=== PATIENT | male | born 1930 | race Caucasian/White ===

== ENCOUNTER 2021-07-15 11:57 | Emergency (ER) | payer MEDICARE, BC ==
[2021-07-15 12:09] LABS: Glucose,Whole Blood 185 mg/dL (75-99)
[2021-07-15 12:33] LABS: Basophils # (A) 0.1 k/uL (0-0.2); Basophils % (A) 1 %; Eosinophils # (A) 0.1 k/uL (0-0.7); Eosinophils % (A) 1 %; HCT 42.3 % (39.0-53.0); Lymphocytes # (A) 1.6 k/uL (1.0-4.8); Lymphocytes % (A) 22 %; MCH 34.6 pg (25.0-35.0); MCHC 33.2 g/dL (31.0-37.0); MCV 104.1 fL (80.0-100.0); Macrocytosis Slight; Mean Platelet Volume 9.1; Monocytes # (A) 0.7 k/uL (0-1.0); Monocytes % (A) 9 %; Neutrophils # (A) 4.9 k/uL (1.3-7.7); Neutrophils % (A) 65 %; Platelet Count 227 k/uL (150-450); RBC 4.06 m/uL (4.30-5.90); RDW 12.3 % (11.5-15.5); WBC 7.5 k/uL (3.8-10.6)
--- NOTE | 2021-07-15 12:54 | ED ---
General Adult HPI - General Stated complaint: SOB Time Seen by Provider: 07/15/21 12:05 Source: patient, RN notes reviewed, old records reviewed Mode of arrival: EMS Limitations: no limitations - History of Present Illness Initial comments: This is an 89-year-old male who presents emergency department stating that he was at [facility] and he had bought the wrong products I went back into exchange however when he got inside there was a line 8 people deep and he got very agitated. Patient states he believes he had an anxiety attack and felt like he couldn't breathe walked outside had to sit down for about 10 minutes and then all symptoms pass. No time did the patient any chest pain or palpitations. Patient denies any lightheadedness or dizziness. Patient states this happened to him approximately 4 times in the past. Patient states his been a couple years since this happened but it felt the same on those previous 4 times. Patient denies any recent fever chills or cough per patient denies any abdominal pain patient denies nausea vomiting diarrhea. - Related Data Home Medications Medication Instructions Recorded Confirmed Aspirin EC [Ecotrin Low Dose] 81 mg PO DAILY 07/15/21 07/15/21 Hydrochlorothiazide 12.5 mg PO DAILY 07/15/21 07/15/21 [hydroCHLOROthiazide] Multivitamins, Thera [Multivitamin 1 tab PO DAILY 07/15/21 07/15/21 (formulary)] Pioglitazone [Actos] 45 mg PO DAILY 07/15/21 07/15/21 Pravastatin Sodium 80 mg PO DAILY 07/15/21 07/15/21 Vit C/E/Zn/Coppr/Lutein/Zeaxan 1 cap PO BID 07/15/21 07/15/21 [Preservision Areds 2 Softgel] glipiZIDE XL [Glucotrol Xl] 5 mg PO DAILY 07/15/21 07/15/21 lisinopriL [Zestril] 20 mg PO DAILY 07/15/21 07/15/21 metFORMIN HCL 500 mg PO BID 07/15/21 07/15/21 Allergies Allergy/AdvReac Type Severity Reaction Status Date / Time No Known Allergies Allergy Verified 07/15/21 13:24 Review of Systems ROS Statement: Those systems with pertinent positive or pertinent negative responses have been documented in the HPI. ROS Other: All systems not noted in ROS Statement are negative. Past Medical History Past Medical History: Cancer, Diabetes Mellitus, Hypertension Additional Past Medical History / Comment(s): prostate cancer History of Any Multi-Drug Resistant Organisms: None Reported Past Surgical History: Prostate Surgery Past Psychological History: No Psychological Hx Reported Smoking Status: Never smoker Past Alcohol Use History: None Reported Past Drug Use History: None Reported General Exam - General Exam Comments Initial Comments: GENERAL: Patient is well-developed and well-nourished. Patient is nontoxic and well- hydrated and is in no acute distress. ENT: Neck is soft and supple. No significant lymphadenopathy is noted. Oropharynx is clear. Moist mucous membranes. Neck has full range of motion without eliciting any pain. EYES: The sclera were anicteric and conjunctiva were pink and moist. Extraocular movements were intact and pupils were equal round and reactive to light. Eyelids were unremarkable. PULMONARY: Unlabored respirations. Good breath sounds bilaterally. No audible rales rhonchi or wheezing was noted. CARDIOVASCULAR: There is a regular rate and rhythm without any murmurs gallops or rubs. ABDOMEN: Soft and nontender with normal bowel sounds. SKIN: Skin is clear with no lesions or rashes and otherwise unremarkable. NEUROLOGIC: Patient is alert and oriented x3. Cranial nerves II through XII are grossly intact. Motor and sensory are also intact. Normal speech, volume and content. Symmetrical smile. MUSCULOSKELETAL: Normal extremities with adequate strength and full range of motion. LYMPHATICS: No significant lymphadenopathy is noted PSYCHIATRIC: Normal psychiatric evaluation. Limitations: no limitations Course Vital Signs 07/15/21 07/15/21 12:09 13:24 Temperature 98.4 F Pulse Rate 80 94 Respiratory 18 16 Rate Blood Pressure 142/71 138/66 O2 Sat by Pulse 95 95 Oximetry Medical Decision Making - Medical Decision Making EKG shows sinus rhythm at 73 bpm IL interval 285 QRS is 94 Q-T intervals 41 QTC is 426 per patient's EKG shows no ST segment elevation or depression. Chest x-ray shows no acute abnormality I back into the room to reevaluate the patient he was asymptomatic throughout the duration of his stay in the emergency department and he wanted to be discharged home. - Lab Data Result diagrams: 07/15/21 12:17 07/15/21 13:11 Lab Results 07/15/21 07/15/21 07/15/21 Range/Units 12:08 12:17 13:11 WBC 7.5 (3.8-10.6) k/uL RBC 4.06 L (4.30-5.90) m/uL Hgb 14.0 (13.0-17.5) gm/dL Hct 42.3 (39.0-53.0) % MCV 104.1 H (80.0-100.0) fL MCH 34.6 (25.0-35.0) pg MCHC 33.2 (31.0-37.0) g/dL RDW 12.3 (11.5-15.5) % Plt Count 227 (150-450) k/uL MPV 9.1 Neutrophils % 65 % Lymphocytes % 22 % Monocytes % 9 % Eosinophils % 1 % Basophils % 1 % Neutrophils # 4.9 (1.3-7.7) k/uL Lymphocytes # 1.6 (1.0-4.8) k/uL Monocytes # 0.7 (0-1.0) k/uL Eosinophils # 0.1 (0-0.7) k/uL Basophils # 0.1 (0-0.2) k/uL Macrocytosis Slight Sodium (137-145) mmol/L Potassium (3.5-5.1) mmol/L Chloride (98-107) mmol/L Carbon Dioxide (22-30) mmol/L Anion Gap mmol/L BUN (9-20) mg/dL Creatinine (0.66-1.25) mg/dL Est GFR (CKD-EPI)AfAm (>60 ml/min/1.73 sqM) Est GFR (CKD-EPI)NonAf (>60 ml/min/1.73 sqM) Glucose (74-99) mg/dL POC Glucose (mg/dL) 185 H (75-99) mg/dL POC Glu Outside Laborer ID Alverto, Gemma Calcium (8.4-10.2) mg/dL Magnesium (1.6-2.3) mg/dL Total Bilirubin (0.2-1.3) mg/dL AST (17-59) U/L ALT (4-49) U/L Alkaline Phosphatase (38-126) U/L Troponin I <0.012 (0.000-0.034) ng/mL Total Protein (6.3-8.2) g/dL Albumin (3.5-5.0) g/dL 07/15/21 Range/Units 13:11 WBC (3.8-10.6) k/uL RBC (4.30-5.90) m/uL Hgb (13.0-17.5) gm/dL Hct (39.0-53.0) % MCV (80.0-100.0) fL MCH (25.0-35.0) pg MCHC (31.0-37.0) g/dL RDW (11.5-15.5) % Plt Count (150-450) k/uL MPV Neutrophils % % Lymphocytes % % Monocytes % % Eosinophils % % Basophils % % Neutrophils # (1.3-7.7) k/uL Lymphocytes # (1.0-4.8) k/uL Monocytes # (0-1.0) k/uL Eosinophils # (0-0.7) k/uL Basophils # (0-0.2) k/uL Macrocytosis Sodium 134 L (137-145) mmol/L Potassium 4.0 (3.5-5.1) mmol/L Chloride 102 (98-107) mmol/L Carbon Dioxide 23 (22-30) mmol/L Anion Gap 9 mmol/L BUN 39 H (9-20) mg/dL Creatinine 1.31 H (0.66-1.25) mg/dL Est GFR (CKD-EPI)AfAm 56 (>60 ml/min/1.73 sqM) Est GFR (CKD-EPI)NonAf 48 (>60 ml/min/1.73 sqM) Glucose 194 H (74-99) mg/dL POC Glucose (mg/dL) (75-99) mg/dL POC Glu Outside Laborer ID Calcium 8.8 (8.4-10.2) mg/dL Magnesium 1.8 (1.6-2.3) mg/dL Total Bilirubin 0.5 (0.2-1.3) mg/dL AST 32 (17-59) U/L ALT 17 (4-49) U/L Alkaline Phosphatase 61 (38-126) U/L Troponin I (0.000-0.034) ng/mL Total Protein 7.3 (6.3-8.2) g/dL Albumin 4.0 (3.5-5.0) g/dL Disposition Clinical Impression: Anxiety Disposition: HOME SELF-CARE Condition: Good Instructions (If sedation given, give patient instructions): Anxiety (ED) Is patient prescribed a controlled substance at d/c from ED?: No Referrals: None,Stated [REFERRING] - 1-2 days Time of Disposition: 14:28
--- NOTE | 2021-07-15 13:01 | XR ---
EXAMINATION TYPE: XR chest 2V DATE OF EXAM: 07/15/2021 COMPARISON: NONE HISTORY: Difficulty breathing TECHNIQUE: Frontal and lateral views of the chest are obtained. FINDINGS: Extensive pleural calcifications are noted, correlate for specimens related disease. No ev ident pneumothorax or pleural effusion. Cardiac mediastinal silhouette is within normal limits. Promi nent lung volumes with flattening the hemidiaphragms suggests underlying COPD. Aorta is dense. IMPRESSION: Correlate for stenosis related disease. COPD.
[2021-07-15 13:47] LABS: Calcium 8.8 mg/dL (8.4-10.2); Magnesium 1.8 mg/dL (1.6-2.3); Total Bilirubin 0.5 mg/dL (0.2-1.3); Total Protein 7.3 g/dL (6.3-8.2)
[2021-07-15 15:00] VITALS: BP 128/78; PULSE 79; RESP 18; TEMP 98
== END 2021-07-15 14:58 | disposition home or self-care (01) ==
LOC: EC 11:57
DX: F41.9 Anxiety disorder, unspecified (principal); I10 Essential (primary) hypertension; E11.9 Type 2 diabetes mellitus without complications; Z79.82 Long term (current) use of aspirin; Z79.84 Long term (current) use of oral hypoglycemic drugs; Z85.46 Personal history of malignant neoplasm of prostate
CPT/HCPCS: 36415; 71046; 80053; 83735; 84484; 85025; 93005; 99285

== ENCOUNTER 2022-07-21 11:49 | Emergency (ER) | payer BC, MEDICARE ==
[2022-07-21 12:05] VITALS: BP 185/69; PULSE 94; RESP 18; TEMP 98
[2022-07-21] MEDS ORDERED: LIDOCAINE 1% INJ 10MG/ML (30 ML VIAL-PF) SQ ONE (12:13)
[2022-07-21] MEDS ORDERED: DIPH,PERTUS(ACELL)TETVAC-LF 0.5 ML VIAL IM ONE (12:13)
[2022-07-21] MEDS ORDERED: BACITRACIN OINT 1 EACH PACKET TOPICAL ONE (12:47)
--- NOTE | 2022-07-21 12:47 | ED ---
Wound/Laceration HPI - General Chief Complaint: Wound/Laceration Stated Complaint: rt hand laceration Time Seen by Provider: 07/21/22 12:12 Source: patient, RN notes reviewed, old records reviewed Mode of arrival: ambulatory Limitations: no limitations - History of Present Illness Initial Comments: This is a pleasant nontoxic-appearing 89-year-old male who presents with a laceration to his right hand caught on a ladder today. Patient is not sure of his tetanus shot is up-to-date. No active bleeding at this time. Does have a history of diabetes and hypertension -: hour(s) (1) Extremity Location: Right: Hand Place: outdoors Patient Tetanus UTD: No Context: accidental Associated Symptoms: none - Related Data Home Medications Medication Instructions Recorded Confirmed Aspirin EC [Ecotrin Low Dose] 81 mg PO DAILY 07/15/21 07/15/21 Multivitamins, Thera [Multivitamin 1 tab PO DAILY 07/15/21 07/15/21 (formulary)] Pioglitazone [Actos] 45 mg PO DAILY 07/15/21 07/15/21 Pravastatin Sodium 80 mg PO DAILY 07/15/21 07/15/21 Vit C/E/Zn/Coppr/Lutein/Zeaxan 1 cap PO BID 07/15/21 07/15/21 [Preservision Areds 2 Softgel] glipiZIDE XL [Glucotrol Xl] 5 mg PO DAILY 07/15/21 07/15/21 hydroCHLOROthiazide 12.5 mg PO DAILY 07/15/21 07/15/21 lisinopriL [Zestril] 20 mg PO DAILY 07/15/21 07/15/21 metFORMIN HCL 500 mg PO BID 07/15/21 07/15/21 Previous Rx's Medication Instructions Recorded Cephalexin [Keflex] 500 mg PO Q6HR 3 Days #12 cap 07/21/22 Allergies Allergy/AdvReac Type Severity Reaction Status Date / Time No Known Allergies Allergy Verified 07/21/22 12:04 Review of Systems ROS Statement: Those systems with pertinent positive or pertinent negative responses have been documented in the HPI. ROS Other: All systems not noted in ROS Statement are negative. Past Medical History Past Medical History: Cancer, Diabetes Mellitus, Hypertension Additional Past Medical History / Comment(s): prostate cancer History of Any Multi-Drug Resistant Organisms: None Reported Past Surgical History: Prostate Surgery Past Psychological History: No Psychological Hx Reported Smoking Status: Never smoker Past Alcohol Use History: None Reported Past Drug Use History: None Reported General Exam Limitations: no limitations General appearance: alert, in no apparent distress Head exam: Present: atraumatic Eye exam: Absent: scleral icterus, conjunctival injection Neck exam: Absent: meningismus Respiratory exam: Absent: respiratory distress, accessory muscle use Cardiovascular Exam: Present: regular rate Right Hand Wrist exam: Present: full ROM, laceration (1cm superficial). Absent: swelling, abrasion, ecchymosis, deformity, crepitus, dislocation, erythema Neurosensory exam: Present: radial nerve intact, ulnar nerve intact, median nerve intact Vascular: Present: normal capillary refill. Absent: vascular compromise Neurological exam: Present: alert, oriented X3 Psychiatric exam: Present: normal affect, normal mood Skin exam: Present: warm, dry, normal color. Absent: cyanosis, diaphoretic, petechiae, pallor Course Vital Signs 07/21/22 12:02 Temperature 98 F Pulse Rate 94 Respiratory 18 Rate Blood Pressure 185/69 O2 Sat by Pulse 100 Oximetry Procedures - Laceration Laceration #1 Consent Obtained: verbal consent Indication: laceration Site: hand Size (cm): 1 Description: linear Pre-repair: wound explored, irrigated extensively Type of Sutures: nylon Size of Sutures: 4-0 Number of Sutures: 2 Technique: simple, interrupted Patient Tolerated Procedure: well, no complications Medical Decision Making - Medical Decision Making 2 sutures placed to the dorsum of his hand, superficial. Patient has full range of motion. Tetanus shot was updated. He was prescribed Keflex for 3 days prophylactically. Follow up with his primary care doctor for suture removal in 7-10 days. Was pt. sent in by a medical professional or institution (, PA, SEALS ENGRAVER, urgent care, hospital, or longterm...) When possible be specific @ -No Did you speak to anyone other than the patient for history (EMS, parent, family, police, friend...)? What history was obtained from this source @ -No Did you review nursing and triage notes (agree or disagree)? Why? @ -I reviewed and agree with nursing and triage notes Were old charts reviewed (outside hosp., previous admission, EMS record, old EKG, old radiological studies, urgent care reports/EKG's, longterm records)? Report findings @ -No old charts were reviewed Differential Diagnosis (chest pain, altered mental status, abdominal pain women, abdominal pain men, vaginal bleeding, weakness, fever, dyspnea, syncope, headache, dizziness, GI bleed, back pain, seizure, CVA, palpatations, mental health, musculoskeletal)? @ -Superficial laceration EKG interpreted by me (3pts min.). @ -n/a X-rays interpreted by me (1pt min.). @ -None done CT interpreted by me (1pt min.). @ -None done U/S interpreted by me (1pt. min.). @ -None done What testing was considered but not performed or refused? (CT, X-rays, U/S, labs)? Why? @ -None What meds were considered but not given or refused? Why? @ -None Did you discuss the management of the patient with other professionals (professionals i.e. , PA, SEALS ENGRAVER, lab, RT, psych nurse, health care social worker, migratory game bird biologist, teacher, antisubmarine weapons officer, pillowcase maker)? Give summary @ -No Was smoking cessation discussed for >3mins.? @ -No Was critical care preformed (if so, how long)? @ -No Were there social determinants of health that impacted care today? How? (Homelessness, low income, unemployed, alcoholism, drug addiction, transportation, low edu. Level, literacy, decrease access to med. care, residential, rehab)? @ -No Was there de-escalation of care discussed even if they declined (Discuss DNR or withdrawal of care, Hospice)? DNR status @ -No What co-morbidities impacted this encounter? (DM, HTN, Smoking, COPD, CAD, Cancer, CVA, ARF, Chemo, Hep., AIDS, mental health diagnosis, sleep apnea, morbid obesity)? @ -Diabetes, hypertension Was patient admitted / discharged? Hospital course, mention meds given and route, prescriptions, significant lab abnormalities, going to OR and other pertinent info. @ -Discharged Undiagnosed new problem with uncertain prognosis? @ -No Drug Therapy requiring intensive monitoring for toxicity (Heparin, Nitro, Insulin, Cardizem)? @ -No Were any procedures done? @ -Suture repair Diagnosis/symptom? @ -Superficial laceration Acute, or Chronic, or Acute on Chronic? @ -Acute Uncomplicated (without systemic symptoms) or Complicated (systemic symptoms)? @ -Uncomplicated Side effects of treatment? @ -No Exacerbation, Progression, or Severe Exacerbation? @ -No Poses a threat to life or bodily function? How? (Chest pain, [place], [place], pneumonia, PE, COPD, DKA, ARF, appy, cholecystitis, CVA, Diverticulitis, Homicidal, Suicidal, threat to staff... and all critical care pts) @ -No Disposition Clinical Impression: Laceration Disposition: HOME SELF-CARE Condition: Good Instructions (If sedation given, give patient instructions): Care For Your Stitches (ED), Laceration (ED) Additional Instructions: Keep wound clean. You can put a thin layer of bacitracin or Neosporin on the wound for the next 2 days and cover with a Band-Aid. Sutures to be removed in 7-10 days. Take antibiotics as prescribed to prevent infection. Return with any new or concerning symptoms. Prescriptions: Cephalexin [Keflex] 500 mg PO Q6HR 3 Days #12 cap Is patient prescribed a controlled substance at d/c from ED?: No Referrals: Colten Daniel MD [Primary Care Provider] - 1-2 days Time of Disposition: 12:45
== END 2022-07-21 12:57 | disposition home or self-care (01) ==
LOC: EC 11:49
DX: S61.411A Laceration without foreign body of right hand, initial encounter (principal); E11.9 Type 2 diabetes mellitus without complications; I10 Essential (primary) hypertension; Z79.82 Long term (current) use of aspirin; Z79.84 Long term (current) use of oral hypoglycemic drugs; Z79.899 Other long term (current) drug therapy; W23.0XXA Caught, crushed, jammed, or pinched between moving objects, initial encounter
CPT/HCPCS: 90715; 99282; 90471; 12001; J2001

== ENCOUNTER → 2022-09-25 | Outpatient (CLI) | payer MEDICARE, BC ==
--- NOTE | 2022-09-25 10:09 | US ---
EXAMINATION TYPE: US kidneys/renal and bladder DATE OF EXAM: 09/25/2022 COMPARISON: NONE CLINICAL INDICATION: Male, 89 years old with history of N18.30; CKD EXAM MEASUREMENTS: Right Kidney: 10.4 x 4.6 x 4.2 cm Left Kidney: 10.0 x 4.7 x 4.2 cm Right Kidney: no evidence of hydronephrosis Left Kidney: no evidence of hydronephrosis Bladder: not fully distended Bilateral Jets seen: no There is no evidence for hydronephrosis at this point in time. No nephrolithiasis is seen. No isma s are identified. The urinary bladder is anechoic. Bilateral ureteral jets are seen. IMPRESSION: No distinct abnormality appreciated.
== END | disposition home or self-care (01) ==
LOC: RADUSWWP 09:18
PROVIDERS: ATTEND Internal Medicine
DX: N18.30 Chronic kidney disease, stage 3 unspecified (principal)
CPT/HCPCS: 76770

== ENCOUNTER 2022-11-22 08:59 | Day surgery (SDC) | payer MEDICARE, BC ==
[2022-11-14 15:09] VITALS: BMI 24.0
[~2022-11-22 08:59] MED LIST: DEXAMETHASONE SOD PHOSPHATE 4 MG/ML 1 ML VIAL IV ONE; FAMOTIDINE 20 MG/2 ML VIAL IV PRN; HYDROmorphone 0.5 MG/0.5 ML SYRINGE IVP PRN; LACTATED RINGERS 1,000 ML IV SCH; LIDOCAINE 1% (10MG/ML) FOR IV START INTRADERMA PRN; ONDANSETRON 4 MG/2 ML VIAL IVP ONE; droPERidol 5 MG/2 ML VIAL IVP ONE
[2022-11-22 09:42] VITALS: RESP 16
[2022-11-22 09:45] LABS: Glucose,Whole Blood 139 mg/dL (70-110)
[2022-11-22] MEDS ORDERED: LIDOCAINE 4% LTA KIT (4 ML) TOPICAL ONE (10:16)
[2022-11-22] MEDS ORDERED: MIDAZOLAM 2 MG/2 ML VIAL ONE (10:16)
[2022-11-22] MEDS ORDERED: PROPOFOL 10 MG/ML 20 ML VIAL IV ONE (10:16)
[2022-11-22] MEDS ORDERED: SUCCINYLCHOLINE CHLORIDE 200 MG/10 ML VIAL IV ONE (10:16)
[2022-11-22] MEDS ORDERED: LIDOCAINE 2% INJ 20 MG/ML (2 ML VIAL) ONE (10:16)
[2022-11-22] MEDS ORDERED: fentaNYL (PF) 50 MCG/ML 2 ML AMP ONE (10:16)
[2022-11-22] MEDS ORDERED: PHENYLEPHRINE-0.9% NACL SYG 1,000 MCG/10 ML SYRINGE ONE (10:16)
[2022-11-22] MEDS ORDERED: LIDOCAINE 1%-EPI 1:100,000 20 ML VIAL SQ ONE (10:47)
--- NOTE | 2022-11-22 11:34 | P.OP ---
Date of Procedure: 11/22/22 Preoperative Diagnosis: Basal cell carcinoma right posterior shoulder Postoperative Diagnosis: Same Procedure(s) Performed: Excision right posterior shoulder basal cell carcinoma 6.3 x 5.4 cm Local flap reconstruction right posterior shoulder defect with primary defect 6.3 x 5.4 cm and secondary defect 6.5 x 5.8 cm Anesthesia: KAY Surgeon: Melvin Chou Estimated Blood Loss (ml): 3 Pathology: other (Right posterior shoulder skin lesion) Condition: stable Disposition: PACU Indications for Procedure: This is an 89-year-old white male whose had a slowly enlarging nonhealing left posterior shoulder skin lesion. This has been biopsied and is a basal cell carcinoma. Operative Findings: 4.2 x 4.5 cm right posterior shoulder lesion which is pink at the periphery and well demarcated but the central portion is crusted and ulcerated Description of Procedure: Patient was brought in after suite and placed in a supine position. Patient underwent induction of general anesthesia with oral endotracheal intubation without difficulty. The patient was positioned in a left lateral decubitus position in order to obtain access with appropriate padding placed. The patient was then prepped and draped in usual aseptic fashion. 1% lidocaine with 1 1000 epinephrine was infused subcutaneously and field block fashion. This allowed to work for 7 minutes vasoconstrictive effect. The lesion itself was then excised grossly entirely with at least 5 mm margins in all directions. This is excised down to the subcutaneous fat layer. The edges of the wound are all undermined extensively. A local flap was developed from inferiorly and rotated from medially into the defect as a rhomboid flap. Hemostasis was gained with electrocautery. The wound was then closed at the primary and secondary defects with inverted interrupted 30 and 4-0 Vicryl suture and the subcutaneous layers and the skin was closed with running locking and simple interrupted 3 and 40 rolling suture. Bacitracin ointment and sterile dressings were placed. The patient was allowed to emerge from anesthesia having tolerated procedure well was extubated in the operative suite and transferred to postop recovery area in satisfactory condition.
[2022-11-22 11:50] VITALS: TEMP 97.6
[2022-11-22 12:42] VITALS: BP 149/71; PULSE 81
== END 2022-11-22 13:17 | disposition home or self-care (01) ==
LOC: OR 08:59
PROVIDERS: ATTEND Otolaryngology
DX: C44.612 Basal cell carcinoma of skin of right upper limb, including shoulder (principal); I10 Essential (primary) hypertension; E78.5 Hyperlipidemia, unspecified; E11.9 Type 2 diabetes mellitus without complications; Z79.899 Other long term (current) drug therapy; Z79.84 Long term (current) use of oral hypoglycemic drugs
CPT/HCPCS: 14301; 14302; 88305; J2250; J0330; J1100; J0690; J2405; J3010; J2704; J2001; J2371

== ENCOUNTER 2022-12-03 08:02 | Emergency (ER) | payer MEDICARE, BC ==
[2022-12-03 08:20] VITALS: BP 145/71; PULSE 85; RESP 18; TEMP 98.9
--- NOTE | 2022-12-03 08:36 | ED ---
Skin/Abscess/FB HPI - General Chief complaint: Skin/Abscess/Foreign Body Stated complaint: post op issues Time Seen by Provider: 12/03/22 08:23 Source: patient, RN notes reviewed Mode of arrival: ambulatory Limitations: no limitations - History of Present Illness Initial comments: This an 89-year-old male presents emergency Department with chief complaint of wound opening up. 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 Zheng couple weeks ago states sutures removed on Sunday. Patient states that he had some Steri-Strips applied over but states wound opened up. Patient denies any associated pain. Patient states that he just finished a course of antibiotics. Denies any other associated symptoms. - Related Data Home Medications Medication Instructions Recorded Confirmed Aspirin EC [Ecotrin Low Dose] 81 mg PO DAILY 07/15/21 11/22/22 Pioglitazone [Actos] 45 mg PO DAILY 07/15/21 11/22/22 Vit C/E/Zn/Coppr/Lutein/Zeaxan 1 cap PO BID 07/15/21 11/22/22 [Preservision Areds 2 Softgel] glipiZIDE XL [Glucotrol Xl] 5 mg PO DAILY 07/15/21 11/22/22 hydroCHLOROthiazide 12.5 mg PO DAILY 07/15/21 11/22/22 lisinopriL [Zestril] 20 mg PO DAILY 07/15/21 11/22/22 metFORMIN HCL 500 mg PO BID 07/15/21 11/22/22 Calcium Carbonate [Calcium] 600 mg PO DAILY 11/14/22 11/22/22 Vitamin B Complex 1 each PO DAILY 11/14/22 11/22/22 Allergies Allergy/AdvReac Type Severity Reaction Status Date / Time No Known Allergies Allergy Verified 12/03/22 08:20 Review of Systems ROS Statement: Those systems with pertinent positive or pertinent negative responses have been documented in the HPI. ROS Other: All systems not noted in ROS Statement are negative. Past Medical History Past Medical History: Cancer, Diabetes Mellitus, Hypertension Additional Past Medical History / Comment(s): prostate cancer with radiation History of Any Multi-Drug Resistant Organisms: None Reported Past Surgical History: Prostate Surgery Additional Past Surgical History / Comment(s): "some sort of rupture surgery" Cancer spot removed from right shoulder area. Past Anesthesia/Blood Transfusion Reactions: No Reported Reaction Past Psychological History: No Psychological Hx Reported Smoking Status: Never smoker Past Alcohol Use History: None Reported Past Drug Use History: None Reported - Past Family History Brother(s) Family Medical History: Cancer Additional Family Medical History / Comment(s): Sirena Victorramos. pancreatic cancer Sister(s) Family Medical History: Cancer Father Family Medical History: Rheumatoid Arthritis (RA) General Exam Limitations: no limitations General appearance: alert, in no apparent distress Head exam: Present: atraumatic, normocephalic, normal inspection Eye exam: Present: normal appearance, PERRL, EOMI. Absent: scleral icterus, conjunctival injection, periorbital swelling Respiratory exam: Present: normal lung sounds bilaterally. Absent: respiratory distress, wheezes, rales, rhonchi, stridor Cardiovascular Exam: Present: regular rate, normal rhythm, normal heart sounds. Absent: systolic murmur, diastolic murmur, rubs, gallop, clicks Skin exam: Present: other (Right posterior shoulder region there is wound approximately 6 cm in length with large opening approximately 1.5 cm no active bleeding no erythema) Course Vital Signs 12/03/22 08:17 Temperature 98.9 F Pulse Rate 85 Respiratory 18 Rate Blood Pressure 145/71 O2 Sat by Pulse 95 Oximetry Procedures - Procedures Initial comment: Wound dehiscence right shoulder was approximated with remaining opening using micromends patient tolerated well no complications. Medical Decision Making - Medical Decision Making Was pt. sent in by a medical professional or institution (, PA, SYSTEMS INTEGRATION ANALYST, urgent care, hospital, or custodial...) When possible be specific @ -No Did you speak to anyone other than the patient for history (EMS, parent, family, police, friend...)? What history was obtained from this source @ -No Did you review nursing and triage notes (agree or disagree)? Why? @ -I reviewed and agree with nursing and triage notes Were old charts reviewed (outside hosp., previous admission, EMS record, old EKG, old radiological studies, urgent care reports/EKG's, custodial records)? Report findings @ -No old charts were reviewed Differential Diagnosis (chest pain, altered mental status, abdominal pain women, abdominal pain men, vaginal bleeding, weakness, fever, dyspnea, syncope, headache, dizziness, GI bleed, back pain, seizure, CVA, palpatations, mental health, musculoskeletal)? @ -Wound dehiscence, cellulitis, abscess EKG interpreted by me (3pts min.). @ -None X-rays interpreted by me (1pt min.). @ -None done CT interpreted by me (1pt min.). @ -None done U/S interpreted by me (1pt. min.). @ -None done What testing was considered but not performed or refused? (CT, X-rays, U/S, labs)? Why? @ -None What meds were considered but not given or refused? Why? @ -None Did you discuss the management of the patient with other professionals (professionals i.e. Dr., PA, SYSTEMS INTEGRATION ANALYST, lab, RT, psych nurse, social services director, accounting analyst, teacher, adult probation officer, disease case manager)? Give summary @ -No Was smoking cessation discussed for >3mins.? @ -No Was critical care preformed (if so, how long)? @ -No Were there social determinants of health that impacted care today? How? (H omelessness, low income, unemployed, alcoholism, drug addiction, transportation, low edu. Level, literacy, decrease access to med. care, halfway, rehab)? @ -No Was there de-escalation of care discussed even if they declined (Discuss DNR or withdrawal of care, Hospice)? DNR status @ -No What co-morbidities impacted this encounter? (DM, HTN, Smoking, COPD, CAD, Cancer, CVA, ARF, Chemo, Hep., AIDS, mental health diagnosis, sleep apnea, morbid obesity)? @ -None Was patient admitted / discharged? Hospital course, mention meds given and route, prescriptions, significant lab abnormalities, going to OR and other pertinent info. @ -Discharge patient had wound dehiscence from recent surgical procedure. Micromends were used to approximate the wound patient will require follow-up with surgeon return parameters were discussed. Undiagnosed new problem with uncertain prognosis? @ -No Drug Therapy requiring intensive monitoring for toxicity (Heparin, Nitro, Insulin, Cardizem)? @ -No Were any procedures done? @ -yes Diagnosis/symptom? @ -Acute wound dehiscence Acute, or Chronic, or Acute on Chronic? @ -Acute Uncomplicated (without systemic symptoms) or Complicated (systemic symptoms)? @ -Uncomplicated Side effects of treatment? @ -No Exacerbation, Progression, or Severe Exacerbation? @ -No Poses a threat to life or bodily function? How? (Chest pain, [place], CA, pneumonia, PE, COPD, DKA, ARF, appy, cholecystitis, CVA, Diverticulitis, Homicidal, Suicidal, threat to staff... and all critical care pts) @ -No Disposition Clinical Impression: Postoperative wound dehiscence Disposition: HOME SELF-CARE Condition: Stable Instructions (If sedation given, give patient instructions): Wound Dehiscence (ED) Additional Instructions: Please contact Dr. Zheng tomorrow morning for follow-up.Please return to the Emergency Department if symptoms worsen or any other concerns. Is patient prescribed a controlled substance at d/c from ED?: No Referrals: Colten Daniel MD [Primary Care Provider] - 1-2 days Time of Disposition: 08:35
== END 2022-12-03 08:47 | disposition home or self-care (01) ==
LOC: EC 08:02
DX: T81.30XA Disruption of wound, unspecified, initial encounter (principal); I10 Essential (primary) hypertension; E11.9 Type 2 diabetes mellitus without complications; Z79.82 Long term (current) use of aspirin; Z79.84 Long term (current) use of oral hypoglycemic drugs
CPT/HCPCS: 99282